=== PATIENT | female | born 1970 ===

== ENCOUNTER 2017-03-10 06:26 | Day surgery (SDC) | payer OTHER ==
[2014-11-16 10:58] VITALS: BMI 41.3
[2017-03-10 07:16] VITALS: TEMP 98.6
[2017-03-10] MEDS ORDERED: Propofol 10 mg/ml Inj (20 ML) ONE (08:04)
--- NOTE | 2017-03-10 08:04 | CP.SDSHP ---
Same Day Surgery H & P - History Proposed Procedure: EGD Pre-Op Diagnosis: SEE NOTES - Previous Medical/Surgical History Misc: Other Pain: 4.Moderate Pain - Allergies Allergies: Allergies No Known Allergies Allergy (Verified 03/10/17 06:59) - Physical Exam General Appearance: N Vital Signs: Vital Signs 03/10/17 06:45 Temperature 98.6 F Pulse Rate 80 Respiratory 20 Rate Blood Pressure 147/85 O2 Sat by Pulse 97 Oximetry Mental Status: Alert & Oriented x3 Neuro: WNL Heart: WNL Lungs: WNL GI: Other - {Optional Preform as Required} Breast: WNL Abdomen: Other Rectal: WNL Integument: WNL : WNL Ortho: WNL ENT: WNL - Impression Pt. Evaluated Today:Candidate for Anesthesia & Procedure: Yes - Date & Time Time: 08:03 Short Stay Discharge - Short Stay Discharge Admitting Diagnosis/Reason for Visit: DYSPEPSIA Disposition: HOME/ ROUTINE
[2017-03-10] MEDS ORDERED: Belladonna-Phenobarbital PO ONE (08:35)
[2017-03-10 09:04] VITALS: O2SAT 100
[2017-03-10 10:50] VITALS: BP 156/92; PULSE 76; RESP 16
== END 2017-03-10 09:35 | disposition home or self-care (01) ==
LOC: C.ENDO 06:26
PROVIDERS: ATTEND Specialist
DX: K29.70 Gastritis, unspecified, without bleeding (principal); K29.80 Duodenitis without bleeding; K44.9 Diaphragmatic hernia without obstruction or gangrene
CPT/HCPCS: 43239; 84703; 88305; J2704

== ENCOUNTER 2017-08-17 17:52 | Emergency (ER) | payer OTHER ==
[2017-08-17 17:53] VITALS: BMI 41.3
[2017-08-17 19:12] LABS: BASO # 0.1 K/uL (0.0-0.2); BASO % 0.9 % (0.0-2.0); EOS # 0.2 K/uL (0.0-0.7); EOS % 2.4 % (0.0-4.0); HEMOGLOBIN 13.9 g/dL (11.0-16.0); LYMPH # 3.1 K/uL (1.0-4.3); MEAN CORPUSCULAR HEMOGLOBIN 32.6 pg (27.0-31.0); MEAN CORPUSCULAR HGB CONC 33.6 g/dL (33.0-37.0); MEAN PLATELET VOLUME 9.2 fL (7.2-11.7); MONO % 9.6 % (0.0-10.0); NEUT # 5.9 K/uL (1.8-7.0); NEUT % 57.1 % (50.0-75.0); NRBC % 0.1 % (0.0-2.0); RBC 4.25 Mil/uL (3.80-5.20)
[2017-08-17 19:13] LABS: WHITE BLOOD COUNT 10.2 K/uL (4.8-10.8)
[2017-08-17 19:16] LABS: MEAN CELL VOLUME 97.2 fL (81.0-99.0)
[2017-08-17 19:24] LABS: ALB/GLOB RATIO 1.3 (1.0-2.1); ALBUMIN 4.2 g/dL (3.5-5.0); ALT/SGPT 96 U/L (9-52); AST/SGOT 93 U/L (14-36); BLOOD UREA NITROGEN 10 mg/dL (7-17); CALCIUM 9.1 mg/dl (8.6-10.4); GFR AFRICAN-AMERICAN > 60; GFR NON-AFRICAN AMERICAN > 60
[2017-08-17 19:27] LABS: PROTHROMBIN TIME 11.4 SECONDS (9.7-12.2)
[2017-08-17 19:35] VITALS: PULSE 89; RESP 16; O2SAT 98
[2017-08-17] MEDS ORDERED: Iodixanol 320 MG/ML 100 ML BOTTLE IV ONE (21:11)
--- NOTE | 2017-08-17 21:44 | C.PDOC ---
History Of Present Illness Pt c/o atraumatic RLE pain. She noticed bruising/discoloration today. Time Seen by Provider: 08/17/17 18:49 Chief Complaint (Nursing): Lower Extremity Problem/Injury History Per: Patient Onset/Duration Of Symptoms: Days (about 1 week) Current Symptoms Are (Timing): Still Present Severity: Moderate Additional History Per: Prior Records Past Medical History Reviewed: Historical Data, Nursing Documentation, Vital Signs Vital Signs: Last Vital Signs Temp 98.3 F 08/17/17 19:34 Pulse 89 08/17/17 19:34 Resp 16 08/17/17 19:34 BP 178/110 H 08/17/17 19:34 Pulse Ox 98 08/17/17 19:34 - Medical History PMH: Arthritis, HTN, Hypercholesterolemia Surgical History: Endoscopy, Tonsillectomy - [facility] Procedures ESOPHAGOGASTRODUODENOSCOPY [EGD] W/CLOSED BIOPSY (03/16/14) EXCISION OF STOMACH, PERCUTANEOUS ENDOSCOPIC APPROACH, VERT (11/29/14) INSPECTION OF UPPER INTESTINAL TRACT, ENDO (11/29/14) ROBOTIC ASSISTED PROCEDURE OF TRUNK, PERC ENDO APPROACH (11/29/14) Family History: States: Unknown Family Hx - Social History Hx Tobacco Use: No Hx Alcohol Use: Yes Hx Substance Use: No - Immunization History Hx Tetanus Toxoid Vaccination: No Hx Influenza Vaccination: No Hx Pneumococcal Vaccination: No Review Of Systems Except As Marked, All Systems Reviewed And Found Negative. Constitutional: Negative for: Fever, Weakness Cardiovascular: Positive for: Chest Pain (mild discomfort) Respiratory: Negative for: Shortness of Breath, Hemoptysis Gastrointestinal: Negative for: Vomiting, Abdominal Pain Musculoskeletal: Positive for: Leg Pain (right). Negative for: Neck Pain, Back Pain Skin: Positive for: Bruising Neurological: Negative for: Weakness, Numbness Physical Exam - Physical Exam Appears: Non-toxic, No Acute Distress Skin: Warm, Dry, Ecchymosis (to right posterior/lateral right thigh and posterior/lateral right calf areas.) Head: Atraumatic, Normacephalic Eye(s): bilateral: PERRL, EOMI Neck: Normal ROM, Supple Cardiovascular: Rhythm Regular Respiratory: Normal Breath Sounds, No Accessory Muscle Use Gastrointestinal/Abdominal: Soft, No Tenderness Back: No CVA Tenderness Extremity: Normal ROM, Tenderness (lateral aspects of right thigh and calf) Pulses: Right Dorsalis Pedis: Normal Neurological/Psych: Oriented x3, Normal Motor, Normal Sensation ED Course And Treatment - Laboratory Results Result Diagrams: 08/17/17 19:08 08/17/17 19:08 Interpretation Of Abnormal: Positive D-Dimer. ECG: Interpreted By Me, Viewed By Me ECG Rhythm: Sinus Rhythm ECG Interpretation: No Acute Changes Rate From EC O2 Sat by Pulse Oximetry: 98 Pulse Ox Interpretation: Normal - CT Scan/US CTA of chest Other Rad Studies (CT/US): Read By Radiologist, Radiology Report Reviewed CT/US Interpretation: No pulmonary embolism. No acute findings. Progress Note: I want to perform a RLE duplex US to r/o DVT, however it is not available at this time. Pt instructed to return to the morning for this test. Disposition Counseled Patient/Family Regarding: Studies Performed, Diagnosis, Need For Followup - Disposition Referrals: Sage Doyle MD [Staff Provider] - Disposition: HOME/ ROUTINE Disposition Time: 21:47 Condition: STABLE Additional Instructions: Return to the ER in the morning of an ultrasound of your leg to rule out a blood clot. Forms: General Discharge Instructions - Clinical Impression Clinical Impression: Pain of right lower extremity
[2017-08-17 22:19] VITALS: BP 161/98; TEMP 98.6
--- NOTE | 2017-08-18 11:37 | CT ---
PROCEDURE: CT Chest with contrast (Pulmonary Angiogram) HISTORY: Chest discomfort, RLE pain, r/o PE COMPARISON: None available. TECHNIQUE: Axial computed tomography images were obtained of the chest in the pulmonary arterial phase of enhancement. Coronal and sagittal reformatted images were created and reviewed. Intravenous contrast dose: Radiation dose: Total exam DLP = mGy-cm. This CT exam was performed using one or more of the following dose reduction techniques: Automated exposure control, adjustment of the mA and/or kV according to patient size, and/or use of iterative reconstruction technique. FINDINGS: PULMONARY ARTERIES: Unremarkable. No pulmonary embolism. AORTA: No acute findings. No thoracic aortic aneurysm. LUNGS: Unremarkable. No nodule, mass or pulmonary consolidation. PLEURAL SPACES: Unremarkable. No effusion or pneuomothorax. HEART: Unremarkable. No cardiomegaly. No significant pericardial effusion. LYMPH NODES: No lymphadenopathy. BONES, CHEST WALL: Unremarkable. No fracture or destructive lesion OTHER FINDINGS: Fatty infiltration of the liver. Status post gastric bypass surgery. IMPRESSION: Unremarkable CT pulmonary angiogram. No pulmonary embolus.
--- NOTE | 2017-08-18 19:38 | CARD ---
APPROVED REPORT EKG Measurement Heart [id number] <Conclusion> Normal sinus rhythm Normal ECG
== END 2017-08-17 22:17 | disposition home or self-care (01) ==
LOC: C.ER 17:52
DX: M79.604 Pain in right leg (principal); I10 Essential (primary) hypertension; E78.00 Pure hypercholesterolemia, unspecified; M19.90 Unspecified osteoarthritis, unspecified site
CPT/HCPCS: 71275; 80053; 84484; 85025; 85378; 85610; 85730; 93005; 99285; Q9967

== ENCOUNTER 2017-08-18 10:24 | Emergency (ER) | payer OTHER ==
[2017-08-18 10:28] VITALS: BMI 32.9
[2017-08-18 10:31] VITALS: RESP 18; TEMP 98.3; O2SAT 99
--- NOTE | 2017-08-18 12:21 | C.PDOC ---
History Of Present Illness 47 years old female returns to ED as per request after being seen in ER yesterday. Patient presents for evaluation of left lower extremity pain and to r /o DVT. Patient currently complaints of bruising and pain to the right neck that began 2 weeks ago. Time Seen by Provider: 08/18/17 10:29 Chief Complaint (Nursing): Abnormal Labs History Per: Patient History/Exam Limitations: no limitations Onset/Duration Of Symptoms: Days (14) Current Symptoms Are (Timing): Still Present Recent travel outside of the [place]: No Past Medical History Reviewed: Historical Data, Nursing Documentation, Vital Signs Vital Signs: Last Vital Signs Temp 98.3 F 08/18/17 10:28 Pulse 96 H 08/18/17 10:28 Resp 18 08/18/17 10:28 BP 169/102 H 08/18/17 10:28 Pulse Ox 99 08/18/17 12:21 - Medical History PMH: Arthritis, HTN, Hypercholesterolemia Surgical History: Endoscopy, Tonsillectomy - [facility] Procedures ESOPHAGOGASTRODUODENOSCOPY [EGD] W/CLOSED BIOPSY (03/16/14) EXCISION OF STOMACH, PERCUTANEOUS ENDOSCOPIC APPROACH, VERT (11/29/14) INSPECTION OF UPPER INTESTINAL TRACT, ENDO (11/29/14) ROBOTIC ASSISTED PROCEDURE OF TRUNK, PERC ENDO APPROACH (11/29/14) Family History: States: Unknown Family Hx - Social History Hx Tobacco Use: No Hx Alcohol Use: Yes Hx Substance Use: No - Immunization History Hx Tetanus Toxoid Vaccination: No Hx Influenza Vaccination: No Hx Pneumococcal Vaccination: No Review Of Systems Constitutional: Negative for: Fever, Chills Gastrointestinal: Negative for: Nausea, Vomiting, Diarrhea Musculoskeletal: Positive for: Neck Pain, Leg Pain (Left leg) Skin: Positive for: Bruising (Right neck ). Negative for: Rash Neurological: Negative for: Weakness, Numbness Physical Exam - Physical Exam Appears: Non-toxic, No Acute Distress Skin: Ecchymosis (diffuse ecchymosis to posterior aspect of right thigh and calf ) Head: Atraumatic, Normacephalic Eye(s): bilateral: Normal Inspection, PERRL, EOMI Oral Mucosa: Moist Neck: Supple ED Course And Treatment O2 Sat by Pulse Oximetry: 99 Disposition - Disposition Disposition Time: 12:20 Forms: [employer] (Burmese)
--- NOTE | 2017-08-18 12:34 | C.PDOC ---
History Of Present Illness 47 years old female returns to ED for scheduled Doppler US of RLE after being seen in ER yesterday. Patient presents for evaluation of right lower extremity pain to r/o DVT. Patient reports, had injury to Right leg 2 month ago describes as " tripped and made a split when my Right leg went forward , landed onto small fence, cut my Right thigh". Pt sts, after injury was seen by PMD diagnosed with contusion. Pt admits, bruising resolved initially and noted new bruising over same area of posterior Right thigh and calf area for past few days , (+) pain. Otherwise, pt denies obvious deformity to Right leg, weakness, sensory or vascular deficits to Right leg. Ambulate to Ed for evaluation, not in any apparent distress. FYI: Records from 08/17/17 review, pt had CTA chest with normal results, advised to return today for Doppler US RLE. Time Seen by Provider: 08/18/17 10:29 Chief Complaint (Nursing): Abnormal Labs History Per: Patient History/Exam Limitations: no limitations Onset/Duration Of Symptoms: Days Current Symptoms Are (Timing): Still Present Recent travel outside of the [place]: No Past Medical History Reviewed: Historical Data, Nursing Documentation, Vital Signs Vital Signs: Last Vital Signs Temp 98.3 F 08/18/17 10:28 Pulse 71 08/18/17 12:41 Resp 18 08/18/17 12:41 BP 164/82 H 08/18/17 12:41 Pulse Ox 99 08/18/17 15:57 - Medical History PMH: Arthritis, HTN, Hypercholesterolemia Surgical History: Endoscopy, Tonsillectomy - [facility] Procedures ESOPHAGOGASTRODUODENOSCOPY [EGD] W/CLOSED BIOPSY (03/16/14) EXCISION OF STOMACH, PERCUTANEOUS ENDOSCOPIC APPROACH, VERT (11/29/14) INSPECTION OF UPPER INTESTINAL TRACT, ENDO (11/29/14) ROBOTIC ASSISTED PROCEDURE OF TRUNK, PERC ENDO APPROACH (11/29/14) Family History: States: Unknown Family Hx - Social History Hx Tobacco Use: No Hx Alcohol Use: Yes Hx Substance Use: No - Immunization History Hx Tetanus Toxoid Vaccination: No Hx Influenza Vaccination: No Hx Pneumococcal Vaccination: No Review Of Systems Constitutional: Negative for: Fever, Chills Gastrointestinal: Negative for: Nausea, Vomiting, Diarrhea Musculoskeletal: Positive for: Leg Pain (Right leg/calf ) Skin: Positive for: Bruising (Right leg and calf ). Negative for: Rash Neurological: Negative for: Weakness, Numbness Physical Exam - Physical Exam Appears: Well, Non-toxic, No Acute Distress Skin: Normal Color, Warm Head: Normacephalic Eye(s): bilateral: PERRL Throat: No Erythema Neck: Trachea Midline, Supple Chest: Symmetrical Cardiovascular: Rhythm Regular, No Murmur, No JVD Respiratory: No Decreased Breath Sounds, No Accessory Muscle Use, No Stridor, No Wheezing Extremity: Normal ROM (RLE), Tenderness (diffuse over posterior aspect Right leg from femur area down to Right calf. Diffuse ecchymoses over posterior aspect Right femur and Right calf with mild tenderness.), No Pedal Edema, Calf Tenderness (Right), Capillary Refill (less than 2sec to Right foot), No Deformity, Other (mod tenderness over Right posterior/lateral knee) DTR: Knee (R): 2+, Ankle (R): 2+ Neurological/Psych: Oriented x3, Normal Speech, Normal Motor, Normal Sensation ED Course And Treatment O2 Sat by Pulse Oximetry: 99 (RA) Pulse Ox Interpretation: Normal - Other Rad pELVIS W/b/l HIPS X-Ray: Interpreted by Me, Viewed By Me Interpretation: (-) acute fx or dislocation Right tib/fib X-Ray: Interpreted by Me, Viewed By Me Interpretation: (-) acute fx or dislocation Hip/Pelvis X-Ray X-Ray: Viewed By Me, Read By Radiologist Interpretation: PROCEDURE: Radiographs of the pelvis and bilateral hips. HISTORY: injury. COMPARISON: None. FINDINGS: BONES: Pelvis: Unremarkable. Right hip:Unremarkable. Left hip:Unremarkable. JOINTS: Right hip: Unremarkable. Left hip: Unremarkable. Sacroiliac Joints: Unremarkable. Pubic symphysis: Unremarkable. SOFT TISSUES: Normal. OTHER FINDINGS: None. IMPRESSION: Unremarkable radiographs of the hips and pelvis. . Concordant results with the preliminary interpretation rendered by the emergency department physician\\PA at the conclusion of the procedure. - CT Scan/US CTA chest 08/17/17 Other Rad Studies (CT/US): Radiology Report Reviewed CT/US Interpretation: unremarcable study Progress Note: On re-evaluation, pt is afebrile, hemodynamicaly stable. Non- toxic. Ambulatory in Ed with stable gait. PulseOx 99% RA. ENT: no acute finidgs. Lungs: CTA B/L, BS equla B/L. RLE: diffuse tenderness with ecchymoses over posterior aspect Right thigh and calf area. Most of tenderness over posterior/lateral aspect Right knee, No palpable edformity, FAROM, no neurovascular deficits. Neurologicaly intact. Doppler US RLE (-) evidence of DVT. Imaging of Right hip, tib/fib (-) acute fx or dislocation. Pt has clinical finidngs c/w Right leg injury 2 wks ago with contusion/ecchymoses, Right knee strain r/o lig. injury. Knee immobilize rapplied to Right knee. Pt advised. ref. to F/u with PMD, Ortho in 2-3 days for re-evaluation. return to ED if any worsening or new changes. Disposition Counseled Patient/Family Regarding: Studies Performed, Diagnosis, Need For Followup, Rx Given - Disposition Referrals: Sage Doyle MD [Staff Provider] - Zelda Vines MD [Staff Provider] - Disposition: HOME/ ROUTINE Disposition Time: 12:00 Condition: STABLE Additional Instructions: Knee immobilizer for 1-2 weeks Take pain medication as need Avoid prolong walking Follow up with PMD, Orthopedist in 1-2 days for re-evaluation, Right knee MRI to r/o ligament/meniscus injury. return to ED if any worsening or new changes. Prescriptions: traMADol [Ultram] 50 mg PO TID #7 tab Instructions: Knee Sprain (DC), Meniscal Tear (DC), Ligament Injuries in the Knee Forms: [employer] (Albanian) - Clinical Impression Clinical Impression: Traumatic ecchymosis of lower leg, Knee contusion - PA / JUNIOR MANU[employer]CTURING ENGINEER / Resident Statement MD/DO has reviewed & agrees with the documentation as recorded. - Scribe Statement The provider has reviewed the documentation as recorded by the Katelynnibe Earle Cervantes All medical record entries made by the Scribe were at my direction and personally dictated by me. I have reviewed the chart and agree that the record accurately reflects my personal performance of the history, physical exam, medical decision making, and the department course for this patient. I have also personally directed, reviewed, and agree with the discharge instructions and disposition.
[2017-08-18 12:41] VITALS: BP 164/82; PULSE 71
--- NOTE | 2017-08-18 14:29 | RAD ---
PROCEDURE: Radiographs of the pelvis and bilateral hips HISTORY: injury COMPARISON: None. FINDINGS: BONES: Pelvis: Unremarkable. Right hip:Unremarkable. Left hip:Unremarkable. JOINTS: Right hip: Unremarkable. Left hip: Unremarkable. Sacroiliac Joints: Unremarkable. Pubic symphysis: Unremarkable. SOFT TISSUES: Normal. OTHER FINDINGS: None. IMPRESSION: Unremarkable radiographs of the hips and pelvis. Concordant results with the preliminary interpretation rendered by the emergency department physician procedure.
--- NOTE | 2017-08-18 16:04 | RAD ---
PROCEDURE: Right Knee Radiographs. HISTORY: injury COMPARISON: None. FINDINGS: BONES: Normal. No fracture. JOINTS: Mild arthrosis medial femoral tibial compartment JOINT EFFUSION: None. OTHER FINDINGS: None. IMPRESSION: Mild arthrosis medial femoral tibial compartment
--- NOTE | 2017-08-18 16:18 | RAD ---
PROCEDURE: Radiographs of the right tibia and fibula. HISTORY: injury COMPARISON: August 18, 2017. Right knee reported separately. TECHNIQUE: Frontal and lateral views obtained. FINDINGS: BONES: No fracture or destructive lesion. JOINT SPACES: Unremarkable. OTHER FINDINGS: Soft tissue injury identified best on lateral view at the level of calf/gastrocnemius muscles. IMPRESSION: Soft tissue swelling without acute articular or osseous abnormality.
--- NOTE | 2017-08-19 09:59 | VASCLAB ---
PROCEDURE: Right Lower Extremity Venous Duplex Exam. HISTORY: Lower leg pain PRIORS: None. TECHNIQUE: Right common femoral, femoral, popliteal and posterior tibial, peroneal and great saphenous veins were evaluated. Flow was assessed with color Doppler, compressibility, assessment of phasic flow and augmentation response. Report prepared by LUIS Walden FINDINGS: RIGHT: 1. Common Femoral Vein: 1.1. Compressibility - Fully compressible: Thrombus - None: Flow - Phasic: Augmentation -Normal: Reflux - None. 2. Femoral Vein: 2.1. Compressibility - Fully compressible: Thrombus - None: Flow - Phasic: Augmentation -Normal: Reflux - None. 3. Popliteal Vein: 3.1. Compressibility - Fully compressible: Thrombus - None: Flow - Phasic: Augmentation -Normal: Reflux - None. 4. Posterior Tibial Vein: 4.1. Compressibility - Fully compressible: Thrombus - None: Flow - Phasic: Augmentation -Normal: Reflux - None. 5. Peroneal Vein: 5.1. Compressibility - Fully compressible: Thrombus - None: Flow - Phasic: Augmentation -Normal: Reflux - None. 6. Great Saphenous Vein: 6.1. Compressibility - Fully compressible: Thrombus -None: Flow - Phasic: Augmentation - Normal: Reflux - Moderate.3.91s OTHER FINDINGS: IMPRESSION: No evidence of deep or superficial vein thrombosis of the right lower extremity with excellent venous flow. Valvular incompetence noted of the right great saphenous vein. Normal venous flow noted in the left common femoral vein.
== END 2017-08-18 13:08 | disposition home or self-care (01) ==
LOC: C.ER 10:24
DX: S80.01XA Contusion of right knee, initial encounter (principal); W18.40XA Slipping, tripping and stumbling without falling, unspecified, initial encounter; E78.00 Pure hypercholesterolemia, unspecified; I10 Essential (primary) hypertension

== ENCOUNTER 2018-02-02 12:00 | Emergency (ER) | payer OTHER ==
[2018-02-02 12:33] VITALS: BMI 35.9
[2018-02-02] MEDS ORDERED: Sodium Chloride 0.9% 1,000 ML IV ONE (13:30)
[2018-02-02 13:53] LABS: BASO # 0.1 K/uL (0.0-0.2); BASO % 1.5 % (0.0-2.0); EOS # 0.2 K/uL (0.0-0.7); EOS % 2.3 % (0.0-4.0); HEMOGLOBIN 14.1 g/dL (11.0-16.0); LYMPH # 2.9 K/uL (1.0-4.3); LYMPH % 39.4 % (20.0-40.0); MEAN CELL VOLUME 97.4 fL (81.0-99.0); MEAN CORPUSCULAR HEMOGLOBIN 32.6 pg (27.0-31.0); MEAN CORPUSCULAR HGB CONC 33.5 g/dL (33.0-37.0); MEAN PLATELET VOLUME 9.6 fL (7.2-11.7); MONO # 0.7 K/uL (0.0-0.8); MONO % 9.8 % (0.0-10.0); NEUT # 3.4 K/uL (1.8-7.0); NRBC % 0.1 % (0.0-2.0); RBC 4.31 Mil/uL (3.80-5.20); RED CELL DISTRIBUTION WIDTH 14.6 % (11.5-14.5); WHITE BLOOD COUNT 7.3 K/uL (4.8-10.8)
[2018-02-02 14:06] LABS: HCG,QUALITATIVE URINE NEGATIVE (NEGATIVE)
[2018-02-02 14:06] LABS: ALB/GLOB RATIO 1.2 (1.0-2.1); ALBUMIN 4.1 g/dL (3.5-5.0); ALT/SGPT 208 U/L (9-52); AST/SGOT 202 U/L (14-36); BLOOD UREA NITROGEN 8 mg/dL (7-17); CALCIUM 9.1 mg/dl (8.6-10.4); GFR NON-AFRICAN AMERICAN > 60; LIPASE 131 U/L (23-300)
[2018-02-02 14:07] LABS: SQUAMOUS EPITHIAL 2 /hpf (0-5); URINE BILIRUBIN NEGATIVE (NEGATIVE); URINE BLOOD NEGATIVE (NEGATIVE); URINE CLARITY Clear (Clear); URINE COLOR Yellow (YELLOW); URINE GLUCOSE (UA) NORMAL (Normal); URINE LEUKOCYTE ESTERASE NEG Leu/uL (Negative); URINE PROTEIN NEGATIVE (NEGATIVE)
[2018-02-02 14:17] LABS: BARBITURATES, UR NEGATIVE (NEGATIVE); BENZODIAZEPINES, UR NEGATIVE (NEGATIVE); OPIATES, UR NEGATIVE (NEGATIVE); PHENCYCLIDINE, UR NEGATIVE (NEGATIVE)
[2018-02-02 15:25] VITALS: BP 154/99; PULSE 85; RESP 17; TEMP 98.2; O2SAT 96
--- NOTE | 2018-02-02 15:52 | CT ---
Date of service: 02/02/2018 PROCEDURE: CT Abdomen and Pelvis HISTORY: Right-sided abdominal discomfort x 3 wks COMPARISON: Correlation made with CTA chest 08/17/2017 which image the upper abdomen.. TECHNIQUE: Contiguous axial images of the abdomen pelvis performed of without oral or intravenous contrast material. Additional 2D sagittal and coronal reformats generated. Radiation dose: Total exam DLP = 1082.17 mGy-cm. This CT exam was performed using one or more of the following dose reduction techniques: Automated exposure control, adjustment of the mA and/or kV according to patient size, and/or use of iterative reconstruction technique. FINDINGS: LOWER THORAX: Heart size within range of normal. No significant pericardial effusion. There is a tiny hiatal hernia with minimal wall thickening of the distal esophagus likely due to protrusion of gastric mucosa. Minor scarring changes seen in the left lingular region. No evidence of effusion or basilar pneumothorax. LIVER: Unremarkable. No gross lesion or ductal dilatation. GALLBLADDER AND BILE DUCTS: Gallbladder physiologically distended. No evidence of intraluminal gallbladder calculi. PANCREAS: Unremarkable. No mass. No ductal dilatation. SPLEEN: Unremarkable. No splenomegaly. ADRENALS: Mildly prominent adrenal glands. . KIDNEYS AND URETERS: Kidneys demonstrate symmetric size. No evidence of nephrolithiasis or hydronephrosis.. BLADDER: Urinary bladder is incompletely distended which may in part account for slight thick-walled appearance. Correlation with urinalysis recommended to exclude cystitis.. REPRODUCTIVE: There is slight localized bulbous appearance of the posterior lower uterine body that could conceivably represent a small uterine fibroid... APPENDIX: Normal appendix best seen on axial series 3 image number [id number]. Periappendiceal inflammatory changes.. BOWEL: The bowel is somewhat limited due to the lack of oral contrast material. Apparent postoperative changes of gastric sleeve surgery however clinical correlation recommended. Visualized loops of small bowel exhibit normal contour and caliber. No evidence of acute mechanical small bowel obstruction. Stool and air seen throughout the large bowel. There are scattered colonic diverticula however no radiographic evidence of diverticulitis noted. PERITONEUM: Unremarkable. No fluid collection. No free air. Small fat containing umbilical hernia. Small fat containing left inguinal hernia. LYMPH NODES: Few small nonspecific retroperitoneal lymph nodes are present. VASCULATURE: Unremarkable. No aortic aneurysm. No aortic atherosclerotic calcification or mural plaque present. BONES: Mild multilevel degenerative spondylosis of the lower thoracic and lumbar spine. There are no acute compression fractures. No suspicious lytic or blastic lesions are identified. . OTHER FINDINGS: None. IMPRESSION: No evidence of nephrolithiasis or hydronephrosis. No evidence of acute appendicitis. Postoperative changes of gastric procedure surgery. Scattered colonic diverticula without radiographic evidence of acute diverticulitis..
--- NOTE | 2018-02-02 16:27 | C.PDOC ---
History Of Present Illness 47 year old female presents to the ED for evaluation of chronic achy right-sided abdominal discomfort. Patient is s/p gastric sleeve. She states that she is now steadily gaining weight, and is around 190 pounds. Patient notes her diet consists most of minimally constipating foods like bread and pasta and many fried foods. Patient also engages in minimal exercise. She was evaluated by her PMD and underwent an ultrasound which showed a right ureteral stone and was referred to the ED for further evaluation. She denies fever, chills, nausea, vomiting. She has not taken any medicine for her symptoms. Time Seen by Provider: 02/02/18 13:08 Chief Complaint (Nursing): Abdominal Pain History Per: Patient History/Exam Limitations: no limitations Onset/Duration Of Symptoms: Days Current Symptoms Are (Timing): Still Present Location Of Pain/Discomfort: Other (right-sided, abdominal ) Radiation Of Pain To:: None Quality Of Discomfort: Aching, "Pain" Associated Symptoms: denies: Fever, Chills, Nausea, Vomiting Past Medical History Reviewed: Historical Data, Nursing Documentation, Vital Signs Vital Signs: Last Vital Signs Temp 98.2 F 02/02/18 15:24 Pulse 85 02/02/18 15:24 Resp 17 02/02/18 15:24 BP 154/99 H 02/02/18 15:24 Pulse Ox 96 02/02/18 15:24 - Medical History PMH: Arthritis, HTN, Hypercholesterolemia Surgical History: Endoscopy, Tonsillectomy - [facility] Procedures ESOPHAGOGASTRODUODENOSCOPY [EGD] W/CLOSED BIOPSY (03/16/14) EXCISION OF STOMACH, PERCUTANEOUS ENDOSCOPIC APPROACH, VERT (11/29/14) INSPECTION OF UPPER INTESTINAL TRACT, ENDO (11/29/14) ROBOTIC ASSISTED PROCEDURE OF TRUNK, PERC ENDO APPROACH (11/29/14) Family History: States: Unknown Family Hx - Social History Hx Tobacco Use: No Hx Alcohol Use: No Hx Substance Use: No - Immunization History Hx Tetanus Toxoid Vaccination: Yes Hx Influenza Vaccination: Yes Hx Pneumococcal Vaccination: Yes Review Of Systems Constitutional: Negative for: Fever, Chills Gastrointestinal: Positive for: Abdominal Pain. Negative for: Nausea, Vomiting Physical Exam - Physical Exam Appears: Non-toxic, No Acute Distress Skin: Normal Color, Warm, Dry Head: Atraumatic, Normacephalic Eye(s): bilateral: Normal Inspection Oral Mucosa: Moist Neck: Supple Chest: Symmetrical, No Deformity, No Tenderness Cardiovascular: Rhythm Regular, No Murmur Respiratory: Normal Breath Sounds, No Rales, No Rhonchi, No Wheezing Gastrointestinal/Abdominal: Soft, No Tenderness, No Guarding, No Rebound, Other (obese ) Extremity: Normal ROM, Capillary Refill (less than 2 seconds ) Neurological/Psych: Oriented x3, Normal Speech, Normal Cognition ED Course And Treatment - Laboratory Results Result Diagrams: 02/02/18 13:50 02/02/18 13:50 Lab Interpretation: Normal (ua neg.) Urine POC: Negative O2 Sat by Pulse Oximetry: 96 (on RA) Pulse Ox Interpretation: Normal - Radiology CXR: Interpreted by Me CXR Interpretation: Yes: No Acute Disease - Other Rad abd x 2 X-Ray: Interpreted by Me (stool throughout colon) Progress Note: Bloodwork, urinalysis, CT A/P, obstructive series abdomen ordered and reviewed. IV Fluids administered. Medical Decision Making Medical Decision Making: chronic constipation, constipating diet with multiple fried foods, poor exercise and weight GAIN despite gastric bypass surgery diet and exercise educated. Disposition Doctor Will See Patient In The: Office Counseled Patient/Family Regarding: Studies Performed, Diagnosis - Disposition Referrals: Sage Doyle MD [Staff Provider] - Reynaldo Canales MD [Staff Provider] - Disposition: HOME/ ROUTINE Disposition Time: 16:29 Condition: GOOD Additional Instructions: labs/UA/abd obstructive series and CT abd/pelvis NORMAL large stool throughout colon Drink a bottle of Mag Citrate now (laxative) and re-evaluate your abdominal discomfort after using the bathroom 2-3 times. Diet and exercise changes as educated: 7 fresh fruits and vegetables daily. fresh oatmeal 1 bowl daily At least on raw apple daily. drink more water eat NOTHING fried 45 minute power walk 5 days/week outpatient follow-up with your PMD/Urology as needed. Instructions: Constipation, Adult (DC) Forms: [employer] ([place]) - Clinical Impression Clinical Impression: Abdominal pain, colicky - Scribe Statement The provider has reviewed the documentation as recorded by the Scribe (Radha Taylor) Provider Attestation: All medical record entries made by the Scribe were at my direction and personally dictated by me. I have reviewed the chart and agree that the record accurately reflects my personal performance of the history, physical exam, medical decision making, and the department course for this patient. I have also personally directed, reviewed, and agree with the discharge instructions and disposition.
--- NOTE | 2018-02-02 16:31 | RAD ---
Date of service: 02/02/2018 PROCEDURE: Radiographs of the chest and abdomen (obstructive series) HISTORY: R abd colic COMPARISON: No prior. TECHNIQUE: AP radiograph of the chest, with upright and supine radiographs of the abdomen. FINDINGS: CHEST: Lungs: Clear. Cardiovascular: Normal size heart. No pulmonary vascular congestion. No aortic atherosclerotic calcification present Pleura: No pleural fluid. No pneumothorax. Other findings: None. ABDOMEN AND PELVIS: Bowel: Unremarkable bowel gas pattern. No evidence of mechanical obstruction. Free air: None. Bones: Unremarkable. Other findings: None. IMPRESSION: Unremarkable radiographs of chest and abdomen. No evidence of mechanical bowel obstruction.
== END 2018-02-02 16:57 | disposition home or self-care (01) ==
LOC: C.ER 12:00
DX: R10.84 Generalized abdominal pain (principal)

== ENCOUNTER 2018-02-18 09:14 | Day surgery (SDC) | payer OTHER ==
[2018-02-18 10:10] VITALS: O2SAT 99
--- NOTE | 2018-02-18 10:37 | CP.SDSHP ---
Same Day Surgery H & P - History Proposed Procedure: COLONSCOPY Pre-Op Diagnosis: SEE NOTES - Previous Medical/Surgical History Cardiac: Hypertension Misc: Other Pain: 4.Moderate Pain Previous Surgical History: COLON POLYPS (REMOVED) , S/P G. SLEEVE - Allergies Allergies: Allergies No Known Allergies Allergy (Verified 02/18/18 10:10) - Physical Exam General Appearance: N Vital Signs: Vital Signs 02/18/18 09:57 Temperature 98.7 F Pulse Rate 95 H Respiratory 20 Rate Blood Pressure 157/82 H O2 Sat by Pulse 99 Oximetry Mental Status: Alert & Oriented x3 Neuro: WNL Heart: Other Lungs: WNL GI: Other - {Optional Preform as Required} Breast: WNL Abdomen: Other Rectal: Other : WNL Ortho: Other ENT: WNL - Impression Pt. Evaluated Today:Candidate for Anesthesia & Procedure: Yes - Date & Time Time: 10:37 Short Stay Discharge - Short Stay Discharge Admitting Diagnosis/Reason for Visit: P/H COLONIC POLYPS Disposition: HOME/ ROUTINE
[2018-02-18] MEDS ORDERED: Propofol 10 mg/ml Inj (20 ML) ONE ×2 (10:40→10:50)
[2018-02-18] MEDS ORDERED: Lidocaine Hydrochloride 5 ML INJ ONE (10:40)
--- NOTE | 2018-02-18 11:06 | CP.SDSHP ---
Same Day Surgery H & P - Allergies Allergies: Allergies No Known Allergies Allergy (Verified 02/18/18 10:10) - Physical Exam Vital Signs: Vital Signs 02/18/18 09:57 Temperature 98.7 F Pulse Rate 95 H Respiratory 20 Rate Blood Pressure 157/82 H O2 Sat by Pulse 99 Oximetry Short Stay Discharge - Short Stay Discharge Admitting Diagnosis/Reason for Visit: P/H COLONIC POLYPS Disposition: HOME/ ROUTINE
[2018-02-18] MEDS ORDERED: Belladonna-Phenobarbital PO ONE (11:25)
[2018-02-18 11:27] VITALS: TEMP 98.9
[2018-02-18 11:39] VITALS: RESP 17
[2018-02-18 13:09] VITALS: BP 144/78; PULSE 86
== END 2018-02-18 12:40 | disposition home or self-care (01) ==
LOC: C.ENDO 09:14
PROVIDERS: ATTEND Specialist
DX: Z12.11 Encounter for screening for malignant neoplasm of colon (principal); Z86.010 Personal history of colon polyps; I10 Essential (primary) hypertension; K64.8 Other hemorrhoids; K57.30 Diverticulosis of large intestine without perforation or abscess without bleeding; Z98.84 Bariatric surgery status
CPT/HCPCS: 45380; 82948; 88305; J2704

== ENCOUNTER 2018-05-28 07:23 | Observation (INO) | payer OTHER ==
[2018-05-28 07:23] VITALS: BMI 35.9
[2018-05-28 08:23] LABS: HCG,QUALITATIVE URINE NEGATIVE (NEGATIVE)
[2018-05-28 08:29] LABS: SQUAMOUS EPITHIAL 6 /hpf (0-5); URINE BACTERIA RARE (<OCC); URINE BILIRUBIN NEGATIVE (NEGATIVE); URINE BLOOD NEGATIVE (NEGATIVE); URINE CLARITY Clear (Clear); URINE COLOR Yellow (YELLOW); URINE GLUCOSE (UA) NORMAL (Normal); URINE LEUKOCYTE ESTERASE NEG Leu/uL (Negative); URINE PROTEIN NEGATIVE (NEGATIVE)
[2018-05-28] MEDS ORDERED: Sodium Chloride 0.9% 1,000 ML IV STA (08:34)
[2018-05-28] MEDS ORDERED: Iohexol 240 (50 ml) PO STA (08:34)
--- NOTE | 2018-05-28 08:46 | C.PDOC ---
History Of Present Illness 48 year old female presents to ED with complaint of nausea and vomiting for the past 2 days. Patient's vomit appears yellow in nature and patient reports having soft stools yesterday. Patient also reports pain to her lower abdomen. She states that since yesterday she developed chest pressure that radiates into the right side of her neck. Patient has a PMHx of hypertension and hypercholesterolemia. Patient reports taking losartan hydrochlorothiazide until she received a letter from her insurance company stating that they recalled the medication and has not taken it for the past couple of days. Patient denies fever, chills, melena, bloody stools, and urinary symptoms. Time Seen by Provider: 05/28/18 07:33 Chief Complaint (Nursing): Chest Pain History Per: Patient History/Exam Limitations: no limitations Onset/Duration Of Symptoms: Days (2) Current Symptoms Are (Timing): Still Present Location Of Pain/Discomfort: RLQ, LLQ Quality Of Discomfort: "Pain" Associated Symptoms: Nausea, Vomiting, Chest Pain (that radiates into the right side of the neck). denies: Fever, Chills, Urinary Symptoms Exacerbating Factors: None Alleviating Factors: None Past Medical History Reviewed: Historical Data, Nursing Documentation, Vital Signs Vital Signs: Last Vital Signs Temp 98.6 F 05/28/18 07:28 Pulse 82 05/28/18 07:43 Resp 18 05/28/18 07:28 BP 175/113 H 05/28/18 07:28 Pulse Ox 97 05/28/18 07:28 - Medical History PMH: Arthritis, Colonic Polyps, HTN, Hypercholesterolemia Denies: Chronic Kidney Disease Surgical History: Endoscopy, Tonsillectomy - [facility] Procedures ESOPHAGOGASTRODUODENOSCOPY [EGD] W/CLOSED BIOPSY (03/16/14) EXCISION OF STOMACH, PERCUTANEOUS ENDOSCOPIC APPROACH, VERT (11/29/14) INSPECTION OF UPPER INTESTINAL TRACT, ENDO (11/29/14) ROBOTIC ASSISTED PROCEDURE OF TRUNK, PERC ENDO APPROACH (11/29/14) Family History: States: Unknown Family Hx - Social History Hx Tobacco Use: No Hx Alcohol Use: No Hx Substance Use: No - Immunization History Hx Tetanus Toxoid Vaccination: Yes Hx Influenza Vaccination: Yes Hx Pneumococcal Vaccination: Yes Review Of Systems Constitutional: Negative for: Fever, Chills, Weakness Cardiovascular: Positive for: Chest Pain (chest pressure) Gastrointestinal: Positive for: Nausea, Vomiting, Abdominal Pain (lower abdomen). Negative for: Diarrhea, Melena, Hematochezia Genitourinary: Negative for: Dysuria, Frequency, Hematuria Musculoskeletal: Positive for: Neck Pain (right-sided) Neurological: Negative for: Weakness, Numbness, Dizziness Physical Exam - Physical Exam Appears: Well, Non-toxic, No Acute Distress Skin: Normal Color, Warm, Dry Head: Atraumatic, Normacephalic Neck: Normal ROM, Supple Chest: Symmetrical, No Deformity, No Tenderness Cardiovascular: Rhythm Regular, No Murmur Respiratory: No Accessory Muscle Use, No Rales, No Rhonchi, No Wheezing Gastrointestinal/Abdominal: Tenderness (lower abdomen, right side more tender than the left side), No Guarding, No Rebound Extremity: Capillary Refill (<2 seconds) Neurological/Psych: Oriented x3, Normal Speech, Normal Cognition ED Course And Treatment - Laboratory Results Result Diagrams: 05/28/18 09:22 05/28/18 09:22 Lab Results: Urine Color Yellow (YELLOW) 05/28/18 08:13 Urine Clarity Clear (Clear) 05/28/18 08:13 Urine pH 8.0 (5.0-8.0) 05/28/18 08:13 Ur Specific [place] 1.015 (1.003-1.030) 05/28/18 08:13 Urine Protein Negative mg/dL (NEGATIVE) 05/28/18 08:13 Urine Glucose (UA) Normal mg/dL (Normal) 05/28/18 08:13 Urine Ketones Negative mg/dL (NEGATIVE) 05/28/18 08:13 Urine Blood Negative (NEGATIVE) 05/28/18 08:13 Urine Nitrate Negative (NEGATIVE) 05/28/18 08:13 Urine Bilirubin Negative (NEGATIVE) 05/28/18 08:13 Urine Urobilinogen 4.0 mg/dL (0.2-1.0) H 05/28/18 08:13 Ur Leukocyte Esterase Neg [place]/uL (Negative) 05/28/18 08:13 Urine WBC (Auto) 2 /hpf (0-5) 05/28/18 08:13 Urine RBC (Auto) 1 /hpf (0-3) 05/28/18 08:13 Ur Squamous Epith Cells 6 /hpf (0-5) H 05/28/18 08:13 Urine Bacteria Rare (<OCC) 05/28/18 08:13 Urine HCG, Qual Negative (NEGATIVE) 05/28/18 08:13 Urine HCG, Qual Negative (NEGATIVE) 05/28/18 08:13 ECG: Interpreted By Me, Viewed By Me ECG Rhythm: Sinus Rhythm ECG Interpretation: Normal, No Acute Changes Rate From EC O2 Sat by Pulse Oximetry: 97 (in RA) - Other Rad CXR X-Ray: Interpreted by Me, Viewed By Me Interpretation: Accession No. : [id number]. Patient Name / ID : ALEE SANDY / [id number]. Exam Date : 05/28/2018 09:30:15 ( Approved ). Study Comment : Sex / Age : F / 48Y. Creator : Velma Rodriguez MD. Dictator : Velma Rodriguez MD. Termite Renewal Inspector : Dentures Lab Technician : Velma Rodriguez MD. Approver2 : Report Date : 05/28/2018 11:06:39. My Comment : . Date of service: 05/28/2018. PROCEDURE: CHEST RADIOGRAPH, 1 VIEW. HISTORY: chest pain. COMPARISON: 02/02/2018. FINDINGS: LUNGS: The lungs are well inflated and clear. PLEURA: No pneumothorax or pleural effusion. CARDIOVASCULAR: The heart is normal in size. No aortic atherosclerotic calcifications present. OSSEOUS STRUCTURES: Within normal limits for the patient's age. VISUALIZED UPPER ABDOMEN: Normal. OTHER FINDINGS: None. IMPRESSION: No active pulmonary disease. - CT Scan/US Abdomen/Pelvis CT Other Rad Studies (CT/US): Interpreted By Me, Read By Radiologist CT/US Interpretation: Accession No. : [id number]. Patient Name / ID : ALEE SANDY / [id number]. Exam Date : 05/28/2018 12:00:08 ( Approved ). Study Comment : Sex / Age : F / 48Y. Creator : Cate Nelson. Dictator : Velma Rodriguez MD. Termite Renewal Inspector : Dentures Lab Technician : Velma Rodriguez MD. Approver2 : Report Date : 05/28/2018 12:14:52. My Comment : . Date of service: 05/28/2018. PROCEDURE: CT Abdomen and Pelvis with contrast. HISTORY: low abdominal pain, vomiting. COMPARISON: 02/02/2018. TECHNIQUE: CT scan of the abdomen and pelvis was performed after administration of intravenous contrast. Oral contrast was administered. Coronal and sagittal reformatted images were obtained. Contrast dose: 100 mL Visipaque 320. Radiation dose: Total exam DLP = 1166.33 mGy-cm. This CT exam was performed using one or more of the following dose reduction techniques: Automated exposure control, adjustment of the mA and/or kV according to patient size, and/or use of iterative reconstruction technique. FINDINGS: LOWER THORAX: The visualized lungs are clear. LIVER: Mild hepatomegaly and fatty liver. Normal homogeneous enhancement. No gross lesion or ductal dilatation. GALLBLADDER AND BILE DUCTS: Well distended. No calcified gallstones, wall thickening or pericholecystic fluid. PANCREAS: Normal in size with homogeneous enhancement. No gross lesion or ductal dilatation. SPLEEN: Normal in size and appearance. ADRENALS: No discrete nodule. KIDNEYS AND URETERS: Normal in size with homogeneous enhancement. No hydronephrosis. No solid mass. VASCULATURE: No aortic ane urysm. There are no aortic atherosclerotic calcifications or mural plaque present. BOWEL: There are postsurgical changes of gastric sleeve surgery. There is apparent mild circumferential mural thickening in the 2nd and 3rd portions of the duodenum and proximal jejunum. The mid and distal small bowel loops are normal in caliber. The colon is grossly normal in appearance. Scattered colonic diverticula without CT evidence for acute diverticulitis no bowel wall thickening or obstruction. APPENDIX: Normal appendix. PERITONEUM: No free fluid. No free air. LYMPH NODES: No enlarged lymph nodes. BLADDER: Partially distended and there is apparent mild circumferential mural thickening of the bladder wall with mild perivesical inflammatory changes. REPRODUCTIVE: The uterus is normal in size. BONES: No acute fracture. Within normal limits for the patient's age. OTHER FINDINGS: None.. IMPRESSION: 1. Postsurgical changes of gastric sleeve surgery. Apparent mild circumferential mural thickening in the duodenum and proximal jejunum could represent nonspecific infectious/inflammatory duodenitis and enteritis. No evidence for bowel obstruction. 2. Mild hepatomegaly and fatty liver. 3. Apparent mild circumferential mural thickening of the urinary bladder wall with mild Lamar vesicle inflammatory changes which could represent cystitis in the appropriate setting. Please correlate with urine analysis. Progress Note: EKG, CXR, and Abdomen/ Pelvis CT ordered. Labs ordered with cardiac enzymes and UA. Patient given IV fluids. - Physician Consult Information Physician Contacted: Sage Doyle Outcome Of Conversation: accepted to [facility] for observation Disposition - Disposition Disposition: HOSPITALIZED Disposition Time: 13:28 Condition: FAIR - Clinical Impression Clinical Impression: Chest pain, Abdominal pain, Vomiting - PA / FITTING ROOM CHECKER / Resident Statement MD/DO has reviewed & agrees with the documentation as recorded. (Alona Alva) - Scribe Statement The provider has reviewed the documentation as recorded by the Scribe (Alona Alva) All medical record entries made by the Scribe were at my direction and personally dictated by me. I have reviewed the chart and agree that the record accurately reflects my personal performance of the history, physical exam, medical decision making, and the department course for this patient. I have also personally directed, reviewed, and agree with the discharge instructions and disposition. Decision To Admit - Pt Status Changed To: Hospital Disposition Of: Observation - . Bed Request Type: Telemetry Admitting Physician: Sage Doyle Patient Diagnosis: Chest pain, Abdominal pain, Vomiting
[2018-05-28] MEDS ORDERED: Iohexol 240 (50 ml) ONE (09:12)
[2018-05-28] MEDS ORDERED: Sodium Chloride 0.9% 1,000 ML ONE (09:12)
[2018-05-28 09:27] LABS: BASO # 0.1 K/uL (0.0-0.2); BASO % 1.2 % (0.0-2.0); EOS # 0.2 K/uL (0.0-0.7); EOS % 2.2 % (0.0-4.0); HEMOGLOBIN 14.7 g/dL (11.0-16.0); LYMPH # 2.5 K/uL (1.0-4.3); LYMPH % 35.1 % (20.0-40.0); MEAN CELL VOLUME 96.9 fL (81.0-99.0); MEAN CORPUSCULAR HEMOGLOBIN 32.7 pg (27.0-31.0); MEAN CORPUSCULAR HGB CONC 33.8 g/dL (33.0-37.0); MEAN PLATELET VOLUME 9.7 fL (7.2-11.7); MONO # 0.7 K/uL (0.0-0.8); MONO % 10.1 % (0.0-10.0); NEUT # 3.7 K/uL (1.8-7.0); NEUT % 51.4 % (50.0-75.0); RBC 4.49 Mil/uL (3.80-5.20); RED CELL DISTRIBUTION WIDTH 13.7 % (11.5-14.5); WHITE BLOOD COUNT 7.2 K/uL (4.8-10.8)
[2018-05-28 09:40] LABS: INR 1.1; PROTHROMBIN TIME 12.5 SECONDS (9.7-12.2)
[2018-05-28 09:52] LABS: CK-MB 1.77 ng/mL (0.0-3.38)
[2018-05-28 10:05] LABS: ALB/GLOB RATIO 1.3 (1.0-2.1); ALBUMIN 4.4 g/dL (3.5-5.0); BLOOD UREA NITROGEN 10 mg/dL (7-17); CALCIUM 9.5 mg/dl (8.6-10.4); GFR NON-AFRICAN AMERICAN > 60; LIPASE 123 U/L (23-300)
[2018-05-28 10:06] LABS: ALT/SGPT 59 U/L (9-52); AST/SGOT 71 U/L (14-36)
--- NOTE | 2018-05-28 11:10 | RAD ---
Date of service: 05/28/2018 PROCEDURE: CHEST RADIOGRAPH, 1 VIEW HISTORY: chest pain COMPARISON: 02/02/2018. FINDINGS: LUNGS: The lungs are well inflated and clear. PLEURA: No pneumothorax or pleural effusion. CARDIOVASCULAR: The heart is normal in size. No aortic atherosclerotic calcifications present. OSSEOUS STRUCTURES: Within normal limits for the patient's age. VISUALIZED UPPER ABDOMEN: Normal. OTHER FINDINGS: None. IMPRESSION: No active pulmonary disease.
[2018-05-28] MEDS ORDERED: Iodixanol 320 MG/ML 100 ML BOTTLE IV ONE (11:46)
--- NOTE | 2018-05-28 12:38 | CT ---
Date of service: 05/28/2018 PROCEDURE: CT Abdomen and Pelvis with contrast HISTORY: low abdominal pain, vomiting COMPARISON: 02/02/2018. TECHNIQUE: CT scan of the abdomen and pelvis was performed after administration of intravenous contrast. Oral contrast was administered. Coronal and sagittal reformatted images were obtained. Contrast dose: 100 mL Visipaque 320 Radiation dose: Total exam DLP = 1166.33 mGy-cm. This CT exam was performed using one or more of the following dose reduction techniques: Automated exposure control, adjustment of the mA and/or kV according to patient size, and/or use of iterative reconstruction technique. FINDINGS: LOWER THORAX: The visualized lungs are clear. LIVER: Mild hepatomegaly and fatty liver. Normal homogeneous enhancement. No gross lesion or ductal dilatation. GALLBLADDER AND BILE DUCTS: Well distended. No calcified gallstones, wall thickening or pericholecystic fluid. PANCREAS: Normal in size with homogeneous enhancement. No gross lesion or ductal dilatation. SPLEEN: Normal in size and appearance. ADRENALS: No discrete nodule. KIDNEYS AND URETERS: Normal in size with homogeneous enhancement. No hydronephrosis. No solid mass. VASCULATURE: No aortic aneurysm. There are no aortic atherosclerotic calcifications or mural plaque present. BOWEL: There are postsurgical changes of gastric sleeve surgery. There is apparent mild circumferential mural thickening in the 2nd and 3rd portions of the duodenum and proximal jejunum. The mid and distal small bowel loops are normal in caliber. The colon is grossly normal in appearance. Scattered colonic diverticula without CT evidence for acute diverticulitis no bowel wall thickening or obstruction. APPENDIX: Normal appendix. PERITONEUM: No free fluid. No free air. LYMPH NODES: No enlarged lymph nodes. BLADDER: Partially distended and there is apparent mild circumferential mural thickening of the bladder wall with mild perivesical inflammatory changes. REPRODUCTIVE: The uterus is normal in size. BONES: No acute fracture. Within normal limits for the patient's age. OTHER FINDINGS: None.. IMPRESSION: 1. Postsurgical changes of gastric sleeve surgery. Apparent mild circumferential mural thickening in the duodenum and proximal jejunum could represent nonspecific infectious/inflammatory duodenitis and enteritis. No evidence for bowel obstruction. 2. Mild hepatomegaly and fatty liver. 3. Apparent mild circumferential mural thickening of the urinary bladder wall with mild Lamar vesicle inflammatory changes which could represent cystitis in the appropriate setting. Please correlate with urine analysis.
[2018-05-28 14:35] VITALS: RESP 20
[2018-05-28] MEDS ORDERED: Labetalol 5mg/ml (4ml) IVP STA (14:39)
--- NOTE | 2018-05-28 22:15 | CP.PCM.HP ---
Present on Admission - Present on Admission Any Indicators Present on Admission: No Past Patient History - Past Medical History & Family History Past Medical History?: Yes - Past Social History Smoking Status: Never Smoked - CARDIAC Hx Hypercholesterolemia: Yes Hx Hypertension: Yes - PULMONARY Hx Respiratory Disorders: No - NEUROLOGICAL Hx Neurological Disorder: No - HEENT Hx HEENT Problems: No - RENAL Hx Chronic Kidney Disease: No - ENDOCRINE/METABOLIC Hx Endocrine Disorders: No - HEMATOLOGICAL/ONCOLOGICAL Hx Blood Disorders: No - INTEGUMENTARY Hx Dermatological Problems: No - MUSCULOSKELETAL/RHEUMATOLOGICAL Hx Arthritis: Yes - GASTROINTESTINAL Hx Gastrointestinal Disorders: Yes Other/Comment: GASTRIC SLEEVE - GENITOURINARY/GYNECOLOGICAL Hx Genitourinary Disorders: No Other/Comment: polycystic ovaries - PSYCHIATRIC Hx Substance Use: No - SURGICAL HISTORY Hx Tonsillectomy: Yes - ANESTHESIA Hx Anesthesia: Yes Hx Anesthesia Reactions: No Hx Malignant Hyperthermia: No Meds Allergies/Adverse Reactions: Allergies Allergy/AdvReac Type Severity Reaction Status Date / Time No Known Allergies Allergy Verified 05/28/18 07:33 Results - Vital Signs Recent Vital Signs: Last Vital Signs Temp 98.3 F 05/28/18 15:11 Pulse 91 H 05/28/18 15:11 Resp 20 05/28/18 15:11 BP 151/83 H 05/28/18 17:25 Pulse Ox 97 05/28/18 18:39 - Labs Result Diagrams: 05/28/18 09:22 05/28/18 09:22 Labs: Laboratory Results - last 24 hr 05/28/18 05/28/18 05/28/18 08:13 09:22 09:22 WBC 7.2 RBC 4.49 Hgb 14.7 Hct 43.5 MCV 96.9 MCH 32.7 H MCHC 33.8 RDW 13.7 Plt Count 321 MPV 9.7 Neut % (Auto) 51.4 Lymph % (Auto) 35.1 [place] % (Auto) 10.1 H Eos % (Auto) 2.2 Baso % (Auto) 1.2 Neut # (Auto) 3.7 Lymph # (Auto) 2.5 [place] # (Auto) 0.7 Eos # (Auto) 0.2 Baso # (Auto) 0.1 PT 12.5 H INR 1.1 APTT 38 H Sodium Potassium Chloride Carbon Dioxide Anion Gap BUN Creatinine Est GFR ( Amer) Est GFR (Non-Af Amer) Random Glucose Calcium Total Bilirubin AST ALT Alkaline Phosphatase Total Creatine Kinase CK-MB (Mass) Troponin I Total Protein Albumin Globulin Albumin/Globulin Ratio Lipase Urine Color Yellow Urine Clarity Clear Urine pH 8.0 Ur Specific [place] 1.015 Urine Protein Negative Urine Glucose (UA) Normal Urine Ketones Negative Urine Blood Negative Urine Nitrate Negative Urine Bilirubin Negative Urine Urobilinogen 4.0 H Ur Leukocyte Esterase Neg Urine WBC (Auto) 2 Urine RBC (Auto) 1 Ur Squamous Epith Cells 6 H Urine Bacteria Rare Urine HCG, Qual Negative C. difficile Ag & Toxin 05/28/18 05/28/18 05/28/18 09:22 17:13 20:01 WBC RBC Hgb Hct MCV MCH MCHC RDW Plt Count MPV Neut % (Auto) Lymph % (Auto) [place] % (Auto) Eos % (Auto) Baso % (Auto) Neut # (Auto) Lymph # (Auto) [place] # (Auto) Eos # (Auto) Baso # (Auto) PT INR APTT Sodium 133 Potassium 4.0 Chloride 98 Carbon Dioxide 27 Anion Gap 12 BUN 10 Creatinine 0.6 L Est GFR ( Amer) > 60 Est GFR (Non-Af Amer) > 60 Random Glucose 95 Calcium 9.5 Total Bilirubin 1.4 H AST 71 H D ALT 59 H D Alkaline Phosphatase 112 Total Creatine Kinase 380 H CK-MB (Mass) 1.77 Troponin I < 0.0120 < 0.0120 Total Protein 7.9 Albumin 4.4 Globulin 3.5 Albumin/Globulin Ratio 1.3 Lipase 123 Urine Color Urine Clarity Urine pH Ur Specific [place] Urine Protein Urine Glucose (UA) Urine Ketones Urine Blood Urine Nitrate Urine Bilirubin Urine Urobilinogen Ur Leukocyte Esterase Urine WBC (Auto) Urine RBC (Auto) Ur Squamous Epith Cells Urine Bacteria Urine HCG, Qual C. difficile Ag & Toxin Negative
--- NOTE | 2018-05-29 06:22 | HP ---
CHIEF COMPLAINT: Abdominal pain and chest pain. HISTORY OF PRESENT ILLNESS: This is a 48-year-old female, well known to me with history of hypertension. She is status post bariatric surgery. She is compliant with her diet, medication, and followup. Two days ago, she developed nausea and vomiting and the vomiting is yellow, non-projectile; along with that she had loose watery stool for one day. Pain is in the left lower quadrant, according to the patient. She also developed upper chest wall pain, which is dull, non-radiating, and not associated with diaphoresis or dizziness. She has known case of hypertension and hyperlipidemia. She denies smoking. She has not been taking her blood pressure medication due to fear of a recall that she heard on the television. The patient denies any dyspnea on exertion, orthopnea, or PND. She denies any cough, sore throat, or runny nose. She denies any dyspepsia. No nausea or vomiting. She denies any history of dysuria, hematuria, or pyuria. PAST MEDICAL HISTORY: Obesity, hypertension, hyperlipidemia, colon polyps, and arthritis, status post bariatric surgery, and tonsillectomy. SOCIAL HISTORY: Nonsmoker and non-EtOH user. CURRENT MEDICATIONS: She is supposed to be on Hyzaar. PHYSICAL EXAMINATION: GENERAL: A middle-aged female, in no acute distress. VITAL SIGNS: Blood pressure 151/83, pulse 99, respiratory rate 20, and temperature 98.3. SKIN: No rashes, no bruises, no purpura, no ecchymosis. HEENT: Atraumatic and normocephalic. Negative pallor and negative jaundice. Extraocular movements are intact. NECK: Supple. No JVD, no lymph nodes, no thyromegaly, no carotid bruit. CHEST WALL: Bilateral symmetrical expansion. No tenderness. No deformity. LUNGS: Clear. No rales, no rhonchi. CARDIOVASCULAR SYSTEM: S1 and S2 regular. No heave, no thrill. ABDOMEN: Soft and nontender. Bowel sounds are positive. RECTAL AND PELVIC: Negative. EXTREMITIES: No clubbing, cyanosis, or edema. CENTRAL NERVOUS SYSTEM: Awake, alert and oriented x 3. ASSESSMENT: 1. Atypical chest pain, rule out myocardial infarction. 2. Abdominal pain, rule out gastritis. 3. Hypertension, poorly controlled due to noncompliance. 4. Obesity. PLAN: Admit. Detailed orders have been written. Seen and examined. Sage Doyle MD
[2018-05-29 07:29] LABS: ALB/GLOB RATIO 1.3 (1.0-2.1); ALT/SGPT 62 U/L (9-52); AST/SGOT 107 U/L (14-36); BILIRUBIN,DIRECT 0.2 mg/dL (0.0-0.4); BLOOD UREA NITROGEN 13 mg/dL (7-17); CALCIUM 9.3 mg/dl (8.6-10.4); GFR NON-AFRICAN AMERICAN > 60
[2018-05-29 08:27] VITALS: BP 124/77; TEMP 98; O2SAT 98
[2018-05-29] MEDS ORDERED: Enoxaparin 40 mg Syringe SC SCH (10:00)
[2018-05-29 11:58] VITALS: PULSE 81
--- NOTE | 2018-05-29 13:02 | CP.PCM.PN ---
Subjective - Date & Time of Evaluation Date of Evaluation: 05/29/18 Time of Evaluation: 12:00 - Subjective Subjective: patient seen today, states feels much better, abdominal pain improved and tolerating diet without N/V BP - CONTROLLED AND STABLE a febrile labs - reviewed- stable Objective - Vital Signs/Intake and Output Vital Signs (last 24 hours): Temp Pulse Resp BP Pulse Ox 98.0 F 81 20 124/77 98 05/29/18 07:00 05/29/18 11:54 05/29/18 07:00 05/29/18 07:00 05/29/18 07:00 Intake and Output: 05/29/18 05/29/18 06:59 18:59 Intake Total 240 Balance 240 - Medications Medications: Current Medications Enoxaparin Sodium (Lovenox) 40 mg SC DAILY [facility] Last Admin: 05/29/18 09:41 Dose: 40 mg Losartan Potassium (Cozaar) 50 mg PO DAILY [facility] Last Admin: 05/29/18 09:40 Dose: 50 mg Metoclopramide HCl (Reglan) 5 mg IVP Q6H [facility] Last Admin: 05/29/18 08:16 Dose: 5 mg Ondansetron HCl (Zofran Inj) 4 mg IVP Q8 PRN PRN Reason: Nausea/Vomiting Pantoprazole Sodium (Protonix Inj) 40 mg IVP DAILY [facility] Last Admin: 05/29/18 09:41 Dose: 40 mg - Labs Labs: 05/28/18 09:22 05/29/18 06:53 PT 12.5 SECONDS (9.7-12.2) H 05/28/18 09:22 INR 1.1 05/28/18 09:22 APTT 38 SECONDS (21-34) H 05/28/18 09:22 Assessment and Plan - Assessment and Plan (Free Text) Assessment: A/P 48 year old female with a PMHx of hypertension and hypercholesterolemia. presents to ED with complaint of nausea and vomiting for the past [address] abd- Postsurgical changes of gastric sleeve surgery. Apparent mild circumferential mural thickening in the duodenum and proximal jejunum could re present nonspecific infectious/inflammatory duodenitis and enteritis. No evidence for bowel obstruction. Mild hepatomegaly and fatty liver. patient symptoms resolved and tolerating diet D/w Dr. Doyle, cleared for discharge home today and f/u with Dr. Doyle office in 1 week Patient instructed to f/u with Dr. Cyr office outpatient for GI work up
--- NOTE | 2018-05-31 01:33 | DS ---
DISCHARGE DIAGNOSES: Noncoronary chest pain, gastritis, hypertension and obesity. HOSPITAL COURSE: This is a 48-year-old female with a history of morbid obesity and hypertension, came in because of chest pain, upper abdominal pain, nausea and one episode of vomiting. MS was ruled out with three sets of cardiac enzymes. The patient did well with Protonix. The patient is feeling better. She is for discharge. She will have outpatient followup with Gastroenterology. She is feeling well. Sage Doyle MD
--- NOTE | 2018-05-31 01:42 | CP.PCM.DIS ---
Provider - Provider Date of Admission: 05/28/18 13:25 Attending physician: Sage Doyle MD Consults: 05/28/18 15:29 Gastroenterology Consult Routine Comment: Consulting Provider: Dea Cyr Consulting Physician: Dea Cyr Reason for Consult: abdominal pain Time Spent in preparation of Discharge (in minutes): 30 Hospital Course - Lab Results Lab Results: Micro Results 05/28/18 22:49 Urine,Clean Catch Urine Culture - Final MULTIPLE SPECIES. SUGGEST REPEAT SPECIMEN. Most Recent Lab Values WBC 7.2 K/uL (4.8-10.8) 05/28/18 09:22 RBC 4.49 Mil/uL (3.80-5.20) 05/28/18 09:22 Hgb 14.7 g/dL (11.0-16.0) 05/28/18 09:22 Hct 43.5 % (34.0-47.0) 05/28/18 09:22 MCV 96.9 fL (81.0-99.0) 05/28/18 09:22 MCH 32.7 pg (27.0-31.0) H 05/28/18 09:22 MCHC 33.8 g/dL (33.0-37.0) 05/28/18 09:22 RDW 13.7 % (11.5-14.5) 05/28/18 09:22 Plt Count 321 K/uL (130-400) 05/28/18 09:22 MPV 9.7 fL (7.2-11.7) 05/28/18 09:22 Neut % (Auto) 51.4 % (50.0-75.0) 05/28/18 09:22 Lymph % (Auto) 35.1 % (20.0-40.0) 05/28/18 09:22 [place] % (Auto) 10.1 % (0.0-10.0) H 05/28/18 09:22 Eos % (Auto) 2.2 % (0.0-4.0) 05/28/18 09:22 Baso % (Auto) 1.2 % (0.0-2.0) 05/28/18 09:22 Neut # (Auto) 3.7 K/uL (1.8-7.0) 05/28/18 09:22 Lymph # (Auto) 2.5 K/uL (1.0-4.3) 05/28/18 09:22 [place] # (Auto) 0.7 K/uL (0.0-0.8) 05/28/18 09:22 Eos # (Auto) 0.2 K/uL (0.0-0.7) 05/28/18 09:22 Baso # (Auto) 0.1 K/uL (0.0-0.2) 05/28/18 09:22 PT 12.5 SECONDS (9.7-12.2) H 05/28/18 09:22 INR 1.1 05/28/18 09:22 APTT 38 SECONDS (21-34) H 05/28/18 09:22 Sodium 136 mmol/L (132-148) 05/29/18 06:53 Potassium 3.9 mmol/L (3.6-5.2) 05/29/18 06:53 Chloride 100 mmol/L (98-107) 05/29/18 06:53 Carbon Dioxide 27 mmol/L (22-30) 05/29/18 06:53 Anion Gap 12 (10-20) 05/29/18 06:53 BUN 13 mg/dL (7-17) 05/29/18 06:53 Creatinine 0.8 mg/dL (0.7-1.2) 05/29/18 06:53 Est GFR ( Amer) > 60 05/29/18 06:53 Est GFR (Non-Af Amer) > 60 05/29/18 06:53 Random Glucose 89 mg/dL (65-105) 05/29/18 06:53 Calcium 9.3 mg/dl (8.6-10.4) 05/29/18 06:53 Total Bilirubin 1.0 mg/dL (0.2-1.3) 05/29/18 06:53 Direct Bilirubin 0.2 mg/dL (0.0-0.4) 05/29/18 06:53 AST 107 U/L (14-36) H D 05/29/18 06:53 ALT 62 U/L (9-52) H 05/29/18 06:53 Alkaline Phosphatase 104 U/L (38-126) 05/29/18 06:53 Total Creatine Kinase 380 U/L (30-135) H 05/28/18 09:22 CK-MB (Mass) 1.77 ng/mL (0.0-3.38) 05/28/18 09:22 Troponin I < 0.0120 ng/mL (0.00-0.120) 05/28/18 20:01 Total Protein 7.2 g/dL (6.3-8.3) 05/29/18 06:53 Albumin 4.0 g/dL (3.5-5.0) 05/29/18 06:53 Globulin 3.1 gm/dL (2.2-3.9) 05/29/18 06:53 Albumin/Globulin Ratio 1.3 (1.0-2.1) 05/29/18 06:53 Lipase 123 U/L (23-300) 05/28/18 09:22 Urine Color Yellow (YELLOW) 05/28/18 08:13 Urine Clarity Clear (Clear) 05/28/18 08:13 Urine pH 8.0 (5.0-8.0) 05/28/18 08:13 Ur Specific [place] 1.015 (1.003-1.030) 05/28/18 08:13 Urine Protein Negative mg/dL (NEGATIVE) 05/28/18 08:13 Urine Glucose (UA) Normal mg/dL (Normal) 05/28/18 08:13 Urine Ketones Negative mg/dL (NEGATIVE) 05/28/18 08:13 Urine Blood Negative (NEGATIVE) 05/28/18 08:13 Urine Nitrate Negative (NEGATIVE) 05/28/18 08:13 Urine Bilirubin Negative (NEGATIVE) 05/28/18 08:13 Urine Urobilinogen 4.0 mg/dL (0.2-1.0) H 05/28/18 08:13 Ur Leukocyte Esterase Neg [place]/uL (Negative) 05/28/18 08:13 Urine WBC (Auto) 2 /hpf (0-5) 05/28/18 08:13 Urine RBC (Auto) 1 /hpf (0-3) 05/28/18 08:13 Ur Squamous Epith Cells 6 /hpf (0-5) H 05/28/18 08:13 Urine Bacteria Rare (<OCC) 05/28/18 08:13 Urine HCG, Qual Negative (NEGATIVE) 05/28/18 08:13 C. difficile Ag & Toxin Negative (NEGATIVE) 05/28/18 17:13 Discharge Plan - Discharge Medications Prescriptions: Valsartan/Hydrochlorothiazide [Diovan Hct 160-12.5 mg Tab] 1 each PO DAILY #30 tablet - Follow Up Plan Condition: FAIR Disposition: HOME/ ROUTINE Instructions: Chest Pain (DC) Additional Instructions: Please f/u with Dr. Doyle office in 1 week Please f/u with Dr. Cyr- call and make appointment - if abdominal pain pers ists please continue medication as per med. rec. 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
--- NOTE | 2018-05-31 06:59 | DS ---
DISCHARGE DIAGNOSES: Noncoronary chest pain and gastritis. HOSPITAL COURSE: This is a 48-year-old female with a history of hypertension and obesity, came in because of chest pain, upper abdominal pain, nausea and one episode of vomiting. AR was ruled out with three sets cardiac enzymes, negative EKG. The patient did well with p.o. Protonix. She felt better. She is for discharge. CONDITION UPON DISCHARGE: Stable. DATA CONSULTANT: During the course of hospitalization, she was seen by Gastroenterology. Sage Doyle MD
--- NOTE | 2018-05-31 07:07 | CON ---
DATE: 05/29/[address] Polo to Dr. Sage Doyle. I was called for GI consultation by the admitting MD. The patient is seen and fully examined on 05/29/2018, as requested by the admitting medical staff. The entire chart is reviewed including but not limited to the most recent lab and radiology study results, current and the previous medication lists, current and the previous medical records. Case discussed with the staff at length. HISTORY OF PRESENT ILLNESS: This is a 48-year-old female who was admitted to the hospital with recurrent episodes of nausea and vomiting which was three days prior to her admission with sharp abdominal pain with postprandial abdominal distention but no reported active bleeding associated with soft more frequent bowel movements. No chest pain or palpitation and no reported significant shortness of breath. The patient also was complaining of only mild chest pressure, radiates into the right side. PAST MEDICAL HISTORY: Including but not limited to, 1. Osteoarthritis. 2. Colon polyps. 3. Hyperlipidemia and hypertension. 4. Status post tonsillectomy. FAMILY HISTORY: Unknown. SOCIAL HISTORY: Denied any recent history of cigarette smoking or alcohol intake. CURRENT MEDICATIONS: Post-admission medication list was reviewed. ALLERGIES TO MEDICATIONS: UNCLEAR. LABORATORY DATA: Post-admission lab results showed normal CBC and normal SMA-7. Abdominal and pelvic CAT scan was done. Official report is seen and discussed with the staff, indicative of status post gastric sleeve surgery and mildly fatty liver with possible cystitis. PHYSICAL EXAMINATION: GENERAL: A 48-year-old female. VITAL SIGNS: Afebrile with a pulse of 80, respiratory rate 18 to 20, blood pressure of 170/98 at the time she was seen by me. HEENT: Showed dry, oral mucous membranes, nonicteric sclerae. LYMPH NODES: No lymphadenitis or lymphadenopathy. LUNGS: Few scattered mild crepitations. Decreased air entry at bases. HEART: Positive S1 and S2. ABDOMEN: Soft with mild distention and generalized tenderness. No mass or organomegaly. No rebound tenderness or guarding. EXTREMITIES: Without significant edema, clubbing, or cyanosis. NEUROLOGIC: No reported new neurological deficits, sensory or motor. No reported focal deficits. IMPRESSION: 1. Re-exacerbation of peptic ulcer disease associated with nausea and vomiting, both to rule out marginal gastric ulcers. 2. Status post gastric sleeve surgery. 3. Past medical history as mentioned above. 4. To rule out an episode of acute pancreatitis due to the patient's severe abdominal pain. SUGGESTIONS: 1. Agree with your plan. 2. Serum lipase and amylase levels. 3. Carafate liquid p.o. 4. Reglan IV. 5. Endoscopic evaluation of the upper GI tract if the patient's symptoms persist. 6. Further recommendation to follow. Thank you for letting me to participate in your patient's case management. Dea Polo MD
--- NOTE | 2018-05-31 15:08 | CARD ---
APPROVED REPORT Date of service: 05/28/2018 EKG Measurement Heart [id number] <Conclusion> Normal sinus rhythm Normal ECG
== END 2018-05-29 13:45 | disposition home or self-care (01) ==
LOC: C.ER 07:23 → C.9E 13:25 → C.6T 13:46
PROVIDERS: ADMIT Internal Medicine; ATTEND Internal Medicine
DX: R07.89 Other chest pain (principal); K29.70 Gastritis, unspecified, without bleeding; I10 Essential (primary) hypertension; E28.2 Polycystic ovarian syndrome; E78.00 Pure hypercholesterolemia, unspecified; E78.5 Hyperlipidemia, unspecified; E66.01 Morbid (severe) obesity due to excess calories; K27.9 Peptic ulcer, site unspecified, unspecified as acute or chronic, without hemorrhage or perforation; K76.0 Fatty (change of) liver, not elsewhere classified; R16.0 Hepatomegaly, not elsewhere classified; T46.5X6A Underdosing of other antihypertensive drugs, initial encounter; Z86.010 Personal history of colon polyps; Z91.19 Patient's noncompliance with other medical treatment and regimen; Z98.84 Bariatric surgery status
CPT/HCPCS: 36415; 71045; 74177; 80048; 80053; 80076; 81001; 82550; 82553; 83690; 84484; 84703; 85025; 85610; 85730; 87086; 87230; 93005; 96361; 96372; 96374; 96375; 96376; 99285; C9113; G0378; J0360; J1650; J2765; J7030; Q9966; Q9967